=== PATIENT | female | born 1950 | race Caucasian/White ===

== ENCOUNTER 2023-12-15 01:15 | Day surgery (SDC) | payer MEDICARE, SELFPAY ==
[2023-12-01 12:56] VITALS: BMI 25.4
--- NOTE | 2023-12-01 13:39 | PC.NURSE ---
Report to the Outpatient Waiting Room, entrance under the green pavilion located off [facility], at time __0800 on date _12/15/23 . Planned Procedure Time: ___1000 . Time changes happen often and if your time is changed the preop area will call you the afternoon before. - You and your visitor will be asked to self-screen and do not enter if you have any COVID symptoms. - A mask is optional within the hospital at this time. Patients may have clear liquids (water, carbonated beverages, clear teas, apple juice) until 3 hours prior to surgery (0700 AM) with a maximum of 20 ounces. - No food from midnight until time of surgery - Infants may have breast milk until 4 hours before surgery, formula 6 hours prior to surgery. - Children will be allowed to drink immediately following surgery. If applicable, please bring a bottle or sippy cup to assist with drinking. Juice, water, soda, and popsicles are readily available. For infants on formula, please bring formula the day of surgery. Pacifiers are allowed. Take the following medications with a SIP of water the morning of surgery: __AMLODIPINE, CARVEDILOL, GABAPENTIN DO NOT STOP ANY OF YOUR OTHER PRESCRIPTION MEDICATIONS PRIOR TO SURGERY ?EXCEPT THE FOLLOWING Medications to discontinue per physician ____NONE Date to take last dose Please no make-up, nail frisian, hairspray, perfume, deodorant, or body powder the day of surgery. No jewelry (including any body piercings) or valuables the day of surgery, leave them at home. Please take a shower or bath the night before, or the morning of, surgery with an antibacterial soap. Wear comfortable, loose fitting clothing. Children are encouraged to wear pajamas. - Jewelry must be removed prior to entering the operating room. Rings and piercings that are not removed may be cut off. - The hospital will not accept responsibility for valuables. - Please leave all valuables, including medications, at home the day of surgery. If you are going home after surgery, a licensed transfer driver must drive you home. - NO public transportation without another adult if you receive anesthesia. - We recommend that an adult stay with you for 24 hours following discharge. - We also recommend that you do not drive, make important decision, drink alcoholic beverages, or take any drugs that were not prescribed by your health care provider for at least 24 hours after your discharge time. For Pediatric surgeries, we recommend two adults accompany the child home. Follow any additional instructions given to you from your surgeon. If you or anyone in your household have experienced Covid symptoms in the past week, please notify your surgeon or the nurse liaison at the phone number below for possible testing. Telephone instructions given to ____PT and asked if any additional questions and then verbalized understanding. Patient advised to call surgeon office or pre surgery nurse liaison [phone] if any additional questions.
--- NOTE | 2023-12-15 04:49 | PM.IMHP ---
H&P: HPI History of Present Illness Date/Time: 12/15/23 04:49 Chief Complaint: urgency frequency and pelvic pain Narrative: she is history of urgency, frequency, bladder discomfort. Previous records have shown possible Hunner's ulceration. She can not tolerate a office cystoscopy. She presents today for cystoscopy under anesthesia and treatment if abnormality is present Review of Systems Review of Systems: All systems reviewed & are unremarkable except as noted in HPI and below [facility] Social History Social History Smoking status: Never smoker Second hand tobacco smoke exposure: No Alcohol intake: current Drinks per week: 7 Living arrangements: alone Spiritual care concerns: No Meds Home Medications and Allergies Home Medications Medication Instructions Recorded Confirmed Type amlodipine 10 mg tablet 10 mg DAILY 12/01/23 12/01/23 History carvedilol 6.25 mg tablet 6.25 mg BID 12/01/23 12/01/23 History famotidine 20 mg tablet 20 mg PO DAILY 12/01/23 12/01/23 History gabapentin 100 mg capsule See Rx Instructions .Route .COMPLEX 12/01/23 12/01/23 History oxybutynin chloride 5 mg 5 mg PO DAILY 12/01/23 12/01/23 History tablet,extended release 24 hr oxycodone-acetaminophen 7.5 mg-325 See Rx Instructions .Route 12/01/23 12/01/23 History mg tablet .COMPLEX PRN Pain pantoprazole 40 mg tablet,delayed 40 mg PO DAILY 12/01/23 12/01/23 History release pravastatin 80 mg tablet 80 mg HS 12/01/23 12/01/23 History Allergies Allergy/AdvReac Type Severity Reaction Status Date / Time codeine AdvReac Rash Verified 12/01/23 12:47 Penicillins AdvReac Rash Verified 12/01/23 12:47 simvastatin AdvReac SWELLING Verified 12/01/23 12:47 TO ANKLES Exam Narrative: no acute distress normal breathing alert oriented x3 Assessment and Plan Assessment and plan (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 She understands risks of bleeding, infection, damage to the urinary tract, she also understands she may have a normal cystoscopy. She declines office cystoscopy stating she can not tolerate the procedure
--- NOTE | 2023-12-15 04:50 | WPDHPUPDATE1 ---
History and Physical Update Update Date/Time: 12/15/23 04:50 History and Physical has been reviewed, including an updated exam of the patient. There are NO changes in the patient's condition. Risks, benefits, and alternatives have been discussed and questions answered. Patient agrees to proceed with procedure.
[2023-12-15] MEDS: LIDOCAINE HCL 2% GEL UROJET 10 ML PKG MUCOUS MEM (08:28)
[2023-12-15 08:37] VITALS: BP 117/52; PULSE 64; RESP 18; TEMP 36.3; O2SAT 98
--- NOTE | 2023-12-15 08:57 | P.PNAN_ITS ---
Anes - Initial Pre Proc Eval Procedure: Operation Date: 12/15/23 10:00 Proposed Procedures p Cystoscopy, Bladder Biopsy with Steroid Injection - Ash Rodriguez MD Date/Time: 12/15/23 08:57 Surgeon: Ash Rodriguez MD Pre Op Diagnosis: hunner's ulcer Patient Data Age: 73 Gender: F Height: 1.52 m Weight: 59.09 kg Allergies Allergy/AdvReac Type Severity Reaction Status Date / Time codeine AdvReac Rash Verified 12/01/23 12:47 Penicillins AdvReac Rash Verified 12/01/23 12:47 simvastatin AdvReac SWELLING Verified 12/01/23 12:47 TO ANKLES Home Medications Medication Instructions Recorded Confirmed Type amlodipine 10 mg tablet 10 mg DAILY 12/01/23 12/01/23 History carvedilol 6.25 mg tablet 6.25 mg BID 12/01/23 12/01/23 History famotidine 20 mg tablet 20 mg PO DAILY 12/01/23 12/01/23 History gabapentin 100 mg capsule See Rx Instructions .Route .COMPLEX 12/01/23 12/01/23 History oxybutynin chloride 5 mg 5 mg PO DAILY 12/01/23 12/01/23 History tablet,extended release 24 hr oxycodone-acetaminophen 7.5 mg-325 See Rx Instructions .Route 12/01/23 12/01/23 History mg tablet .COMPLEX PRN Pain pantoprazole 40 mg tablet,delayed 40 mg PO DAILY 12/01/23 12/01/23 History release pravastatin 80 mg tablet 80 mg HS 12/01/23 12/01/23 History Patient hx anesthesia problems: none Family hx anesthesia problems: none Results Review: All pre-operative results and documents have been reviewed as part of the pre- operative evaluation. [facility] Social History Social History Smoking status: Never smoker Second hand tobacco smoke exposure: No Alcohol intake: current Drinks per week: 7 Living arrangements: alone Spiritual care concerns: No Anes - Eval Final PreProcedure Day of Procedure 12/15/23 08:57 Patient weight: normal Heart: regular rate and rhythm Lungs: clear to auscultation Airway: Mallampati scale class II Neurological: alert and oriented Last oral intake: >/= 8 hours ASA classification: III Emergent: no Anesthetic plan: proceed Anesthesia type and monitoring: general GIVS and standard monitoring Results Review: All pre-operative results and documents have been reviewed as part of the pre- operative evaluation. Informed Consent: The patient's anesthetic plan and its attendant risks and benefits were discussed with the patient/family/POA. Questions were solicited and answers provided to the satisfaction of the patient/family/POA.
[2023-12-15] MEDS: LACTATED RINGERS 1,000 ML 30 ML IV CONT (09:23)
[2023-12-15] MEDS: ceFAZolin 2 GM/D5W 50 ML 2 GM/50 ML BAG IVPB (09:34)
[2023-12-15] MEDS: TRIAMCINOLONE ACET INJ 40 MG/ML VIAL 200 MG IM (09:48)
--- NOTE | 2023-12-15 09:54 | W.PM.PROC2 ---
Procedure Note - Detailed Date of Procedure 12/15/23 Pre-op Diagnosis hunner's ulcer Post-op Diagnosis Same Procedure Performed Cystoscopy, bladder biopsy, steroid injection Surgeon Ash Rodriguez MD Anesthesia MAC Findings 4 areas of Hunner's ulceration within the bladder Description of Procedure She was correctly identified. Informed consent obtained. She from the operating room. She was given MAC anesthesia. She was placed in dorsal thigh position. She was prepped draped sterile fashion. Time-out performed. Cystoscopy revealed a inflamed bladder. She had 4 discrete areas of Hunner's ulceration. There away from the ureteral orifice. She also had moderate trabeculation on the floor of the bladder. There was no tumors. Ureteral orifices were normal. I biopsy 1 of these areas on the left lateral wall. I sent pathologic analysis. I then generously fulgurated all lesions. Once this was completed I injected Kenalog. 200 mg total at a dosage of 40 mg per mill. A total of 5 cc. I again fulgurated any bleeding sites. There was no bleeding under low insufflation pressures. All fulguration was done away from ureteral orifices. Her bladder was drained. She was awakened transferred to PACU in stable condition. Implants None Estimated Blood Loss 1 Pathology Yes (Bladder biopsy) Complications No immediate complications Condition Stable Disposition PACU
[2023-12-15 09:57] VITALS: BP 98/53; PULSE 66; RESP 14; O2SAT 94
[2023-12-15] MEDS: fentaNYL CITRATE INJ (*CRX) 100 MCG/2 ML VIAL 25 MCG IV PUSH ×4 (10:07→10:21)
[2023-12-15 10:20] VITALS: BP 116/67; PULSE 60; RESP 18; O2SAT 94
[2023-12-15 10:50] VITALS: BP 132/62; PULSE 80; RESP 18
[2023-12-15] MEDS: oxyCODONE HCL (*CRX) 5 MG TAB IR PO (11:05)
[2023-12-15] MEDS: PHENAZOPYRIDINE HCL 100 MG TABLET 200 MG PO (11:05)
[2023-12-15 11:10] VITALS: BP 136/58; PULSE 64; RESP 16
[2023-12-15 11:25] VITALS: BP 132/60; PULSE 64; RESP 16
== END 2023-12-15 11:43 | disposition home or self-care (01) ==
PROVIDERS: Visit Provider Urology
PROC: 0TBB8ZX Excision of Bladder, Via Natural or Artificial Opening Endoscopic, Diagnostic (ICD-10-PCS; CPT 52204; principal; 2023-12-15 10:00)
DX: N30.10 Interstitial cystitis (chronic) without hematuria (principal)
CPT/HCPCS: 52204; 52283; 88305; A9270; J0690; J2704; J3010; J3301; J7120

== ENCOUNTER 2024-03-08 02:48 | Day surgery (SDC) | payer MEDICARE, SELFPAY ==
--- NOTE | 2024-03-03 15:05 | PM.IMHP ---
H&P: HPI History of Present Illness Date/Time: 03/03/24 15:05 Chief Complaint: Hunner's ulcerations Narrative: history of Hunner's ulcerations. Has failed multiple interventions. Had a steroid injection approximately 3 months ago. Would like a repeat steroid injection. Review of Systems Review of Systems: All systems reviewed & are unremarkable except as noted in HPI and below [facility] Social History Social History Smoking status: Never smoker Second hand tobacco smoke exposure: No Alcohol intake: current Drinks per week: 7 Living arrangements: alone Spiritual care concerns: No Meds Home Medications and Allergies Home Medications Medication Instructions Recorded Confirmed Type amlodipine 10 mg tablet 10 mg DAILY 12/01/23 12/15/23 History carvedilol 6.25 mg tablet 6.25 mg BID 12/01/23 12/15/23 History famotidine 20 mg tablet 20 mg PO DAILY 12/01/23 12/15/23 History gabapentin 100 mg capsule See Rx Instructions .Route .COMPLEX 12/01/23 12/15/23 History oxybutynin chloride 5 mg 5 mg PO DAILY 12/01/23 12/15/23 History tablet,extended release 24 hr oxycodone-acetaminophen 7.5 mg-325 See Rx Instructions .Route 12/01/23 12/15/23 History mg tablet .COMPLEX PRN Pain pantoprazole 40 mg tablet,delayed 40 mg PO DAILY 12/01/23 12/15/23 History release pravastatin 80 mg tablet 80 mg HS 12/01/23 12/15/23 History phenazopyridine 200 mg tablet 200 mg PO TID PRN pain 6 doses #20 12/15/23 Rx (Pyridium) tabs sulfamethoxazole 800 1 tablet PO Q12H #6 tabs 12/15/23 Rx mg-trimethoprim 160 mg tablet (Bactrim DS) Allergies Allergy/AdvReac Type Severity Reaction Status Date / Time codeine AdvReac Rash Verified 12/15/23 09:00 Penicillins AdvReac Rash Verified 12/15/23 09:00 simvastatin AdvReac SWELLING Verified 12/15/23 09:00 TO ANKLES Exam Narrative: No acute distress normal breathing alert oriented x3 Assessment and Plan Assessment and plan (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 Understands risks of bleeding, infection, injury to surrounding organs, lack of efficacy. She agrees to proceed
[2024-03-05 11:27] VITALS: BMI 25.4
--- NOTE | 2024-03-05 11:45 | PC.NURSE ---
Report to the Outpatient Waiting Room, entrance under the green pavilion located off [facility], at time __9:30AM on date __03/08/24 . Planned Procedure Time: __11:30AM . Time changes happen often and if your time is changed the preop area will call you the afternoon before. - You and your visitor will be asked to self-screen and do not enter if you have any COVID symptoms. - A mask is optional within the hospital at this time. Patients may have clear liquids (water, carbonated beverages, clear teas, apple juice) until 3 hours prior to surgery with a maximum of 20 ounces. - No food from midnight until time of surgery. Take the following medications with a SIP of water the morning of surgery: ____AMLODIPINE, CARVEDILOL, GABAPENTIN, OXYCODONE DO NOT STOP ANY OF YOUR OTHER PRESCRIPTION MEDICATIONS PRIOR TO SURGERY ?EXCEPT THE FOLLOWING Medications to discontinue per physician __HOLD CELEBREX 7 DAYS PRE-OP PER DR MOFFETT (PER PATIENT) Date to take last dose 02/29/24 Please no make-up, nail kenyan, hairspray, perfume, deodorant, or body powder the day of surgery. No jewelry (including any body piercings) or valuables the day of surgery, leave them at home. Please take a shower or bath the night before, or the morning of, surgery with an antibacterial soap. Wear comfortable, loose fitting clothing. Children are encouraged to wear pajamas. - Jewelry must be removed prior to entering the operating room. Rings and piercings that are not removed may be cut off. - The hospital will not accept responsibility for valuables. - Please leave all valuables, including medications, at home the day of surgery. If you are going home after surgery, a licensed special client bus driver must drive you home. - NO public transportation without another adult if you receive anesthesia. - We recommend that an adult stay with you for 24 hours following discharge. - We also recommend that you do not drive, make important decision, drink alcoholic beverages, or take any drugs that were not prescribed by your health care provider for at least 24 hours after your discharge time. For Pediatric surgeries, we recommend two adults accompany the child home. Follow any additional instructions given to you from your surgeon. If you or anyone in your household have experienced Covid symptoms in the past week, please notify your surgeon or the nurse liaison at the phone number below for possible testing. Telephone instructions given to ___PATIENT and asked if any additional questions and then verbalized understanding. Patient advised to call surgeon office or pre surgery nurse liaison [phone] if any additional questions.
--- NOTE | 2024-03-08 04:45 | WPDHPUPDATE1 ---
History and Physical Update Update Date/Time: 03/08/24 04:45 History and Physical has been reviewed, including an updated exam of the patient. There are NO changes in the patient's condition. Risks, benefits, and alternatives have been discussed and questions answered. Patient agrees to proceed with procedure.
[2024-03-08 09:20] VITALS: BP 139/78; PULSE 69; RESP 14; TEMP 36.6; O2SAT 100
--- NOTE | 2024-03-08 09:51 | WPDANESEPPF ---
Anes - Initial Pre Proc Eval Procedure: Operation Date: 03/08/24 11:30 Proposed Procedures p Cystoscopy, Bladder Biopsy with Steroid Injection - Ash Rodriguez MD Date/Time: 03/08/24 09:51 Surgeon: Ash Rodriguez MD Pre Op Diagnosis: hunners ulcer Patient Data Age: 73 Gender: F Height: 1.52 m Weight: 59 kg Allergies Allergy/AdvReac Type Severity Reaction Status Date / Time codeine Allergy Rash Verified 03/05/24 11:19 Penicillins Allergy Rash Verified 03/05/24 11:19 simvastatin AdvReac SWELLING Verified 03/05/24 11:19 TO ANKLES Home Medications Medication Instructions Recorded Confirmed Type amlodipine 10 mg tablet 10 mg PO QAM 12/01/23 03/05/24 History carvedilol 6.25 mg tablet 6.25 mg PO BID 12/01/23 03/05/24 History gabapentin 100 mg capsule See Rx Instructions .Route .COMPLEX 12/01/23 03/05/24 History oxybutynin chloride 5 mg 5 mg PO DAILY 12/01/23 03/05/24 History tablet,extended release 24 hr oxycodone-acetaminophen 7.5 mg-325 See Rx Instructions .Route 12/01/23 03/05/24 History mg tablet .COMPLEX PRN Pain pantoprazole 40 mg tablet,delayed 40 mg PO DAILY 12/01/23 03/05/24 History release pravastatin 80 mg tablet 80 mg PO HS 12/01/23 03/05/24 History phenazopyridine 200 mg tablet 200 mg PO TID PRN pain 6 doses #20 12/15/23 03/05/24 Rx (Pyridium) tabs celecoxib 100 mg capsule 100 mg PO BID 03/05/24 03/05/24 History gabapentin 300 mg capsule 300 mg PO HS 03/05/24 03/05/24 History nortriptyline 10 mg capsule 10 mg PO HS 03/05/24 03/05/24 History Patient hx anesthesia problems: none Family hx anesthesia problems: none Results Review: All pre-operative results and documents have been reviewed as part of the pre-operative evaluation. [facility] Past Medical History Medical History (Updated 03/08/24 @ 09:51 by Suhas Valenzuela MD) HTN (hypertension) HARSH (obstructive sleep apnea) Social History Social History Smoking status: Never smoker Second hand tobacco smoke exposure: No Alcohol intake: current Drinks per week: 14 Living arrangements: alone Spiritual care concerns: No Anes - Eval Final PreProcedure Day of Procedure 03/08/24 09:51 Patient weight: overweight Heart: regular rate and rhythm Lungs: clear to auscultation Airway: Mallampati scale class II Neurological: alert and oriented Last oral intake: >/= 8 hours ASA classification: III Emergent: no Anesthetic plan: proceed Anesthesia type and monitoring: general GIVS and standard monitoring Results Review: All pre-operative results and documents have been reviewed as part of the pre-operative evaluation. Informed Consent: The patient's anesthetic plan and its attendant risks and benefits were discussed with the patient/family/POA. Questions were solicited and answers provided to the satisfaction of the patient/family/POA.
[2024-03-08] MEDS: LACTATED RINGERS 1,000 ML 30 ML IV CONT (10:13)
--- NOTE | 2024-03-08 10:20 | SUR.PREOP ---
PT TOLD JAYASHREE JANY THAT SHE HAD A SPRITE AT 0800. DR MONTELONGO AWARE. OK TO PROCEED
[2024-03-08] MEDS: ceFAZolin 2 GM/D5W 50 ML 2 GM/50 ML BAG IVPB (10:22)
[2024-03-08] MEDS: TRIAMCINOLONE ACET INJ 40 MG/ML VIAL 200 MG IM (10:42)
[2024-03-08 10:58] VITALS: BP 111/73; PULSE 83; RESP 83; O2SAT 95
--- NOTE | 2024-03-08 11:13 | P.OP_ITS ---
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 She is here today for repeat treatment. It has been 3 months. She understands risks of bleeding, infection, lack of efficacy, damage to the urinary tract. She agrees to proceed Findings for areas of Hunner's ulceration. Away from the ureteral orifice. Dystrophic calcifications noted Description of Procedure she was correctly identified. Informed consent obtained. By the operating room. She was given monitored anesthesia care. She was placed in dorsal lithotomy position. She was prepped and draped sterile fashion. Time-out performed. On cystoscopy she had mild trabeculations. She had 4 areas of Hunner's ulceration. The right near the posterior wall dome and left lateral wall of her bladder. Some of these had Dystrophic calcifications. I removed these calcifications with a grasper. I then biopsy 1 of these areas and sent it for permanent analysis. I injected Kenalog into all the areas. I injected 200 mg of concentration of 40 milligrams/mL. 5 cc total. I generously fulgurated all areas. There was no bleeding under low insufflation pressures. She was awakened transferred to PACU in stable condition Estimated Blood Loss 1 Pathology Yes ( bladder biopsy) Complications No immediate complications Condition Stable Disposition PACU
[2024-03-08 11:25] VITALS: BP 129/68; PULSE 70; RESP 16
[2024-03-08 11:55] VITALS: BP 141/73; PULSE 61; RESP 16
[2024-03-08 12:20] VITALS: BP 122/78; PULSE 65; RESP 16
== END 2024-03-08 12:30 | disposition home or self-care (01) ==
PROVIDERS: Visit Provider Urology
PROC: 0TBB8ZX Excision of Bladder, Via Natural or Artificial Opening Endoscopic, Diagnostic (ICD-10-PCS; CPT 52204; principal; 2024-03-08 11:30)
DX: N30.10 Interstitial cystitis (chronic) without hematuria (principal); I10 Essential (primary) hypertension; G47.33 Obstructive sleep apnea (adult) (pediatric)
CPT/HCPCS: 52204; 52283; 88305; J0690; J2405; J2704; J3010; J3301; J7120

== ENCOUNTER 2024-10-18 02:05 | Day surgery (SDC) | payer MEDICARE, SELFPAY ==
[2024-10-08 14:17] VITALS: BMI 25.0
--- NOTE | 2024-10-08 14:27 | PC.NURSE ---
Report to the Outpatient Waiting Room, entrance under the green pavilion located off [facility], at time _0830am on date _10/18/24 . Planned Procedure Time: __10:30am .? Time changes happen often and if your time is changed the preop area will call you the afternoon before. - You and your visitor will be asked to self-screen and do not enter if you have any COVID symptoms. Please call surgeon if you need to reschedule. - A mask is optional within the hospital at this time. Patients may have clear liquids (water, carbonated beverages, clear teas, apple juice) until 3 hours prior to surgery with a maximum of 20 ounces. - No food from midnight until time of surgery and no smoking. This includes no chewing gum, candy or mints.(0730am) d. Take only the following medications with a SIP of water on the morning of surgery: _Amlodipine and Metoprolol, and Oxycodone if needed DO NOT STOP ANY OF YOUR OTHER PRESCRIPTION MEDICATIONS PRIOR TO SURGERY EXCEPT THE FOLLOWING Medications to discontinue per physician Hold all vitamins and supplements for 3 days prior per Anesthesia Date to take last dose____10/14/24 Please no make-up, nail greenlandic, hairspray, perfume, deodorant, or body powder the day of surgery.? No jewelry (including any body piercings) or valuables the day of surgery, leave them at home.? Please take a shower or bath the night before, or the morning of, surgery with an antibacterial soap.? Wear comfortable, loose fitting clothing.? - Jewelry must be removed prior to entering the operating room.? Rings and piercings that are not removed may be cut off. - The hospital will not accept responsibility for valuables.? - Please leave all valuables, including medications, at home the day of surgery. If you are going home after surgery, a licensed courtesy van driver must drive you home.? - NO public transportation without another adult if you receive anesthesia. - We recommend that an adult stay with you for 24 hours following discharge. - We also recommend that you do not drive, make important decision, drink alcoholic beverages, or take any drugs that were not prescribed by your health care provider for at least 24 hours after your discharge time. Follow any additional instructions given to you from your surgeon. Telephone instructions given to ___patient and asked if any additional questions and then verbalized understanding. Patient advised to call surgeon office or pre surgery nurse liaison [phone] if any additional questions.
--- NOTE | 2024-10-13 12:14 | P.HP_ITS ---
H&P: HPI History of Present Illness Date/Time: 10/13/24 12:14 Chief Complaint: bladder pain Narrative: hunner ulcer Review of Systems Review of Systems: All systems reviewed & are unremarkable except as noted in HPI and below [facility] Past Medical History Medical History HTN (hypertension) HARSH (obstructive sleep apnea) Social History Social History Smoking status: Never smoker Second hand tobacco smoke exposure: No Alcohol intake: current Drinks per week: 14 Alcohol use details: 2 glasses wine a day Substance use: never Living arrangements: alone Spiritual care concerns: No Meds Home Medications and Allergies Home Medications Medication Instructions Recorded Confirmed Type amlodipine 10 mg tablet 10 mg PO QAM 12/01/23 10/08/24 History oxybutynin chloride 5 mg 5 mg PO DAILY 12/01/23 10/08/24 History tablet,extended release 24 hr oxycodone-acetaminophen 7.5 mg-325 See Rx Instructions .Route 12/01/23 10/08/24 History mg tablet .COMPLEX PRN Pain pantoprazole 40 mg tablet,delayed 40 mg PO DAILY 12/01/23 10/08/24 History release pravastatin 80 mg tablet 80 mg PO HS 12/01/23 10/08/24 History nortriptyline 10 mg capsule 10 mg PO HS 03/05/24 10/08/24 History metoprolol succinate 50 mg 50 mg PO BID 10/08/24 10/08/24 History tablet,extended release 24 hr Allergies Allergy/AdvReac Type Severity Reaction Status Date / Time codeine Allergy Intermediate Rash Verified 10/08/24 14:12 Penicillins Allergy Intermediate Rash Verified 10/08/24 14:12 simvastatin AdvReac Intermediate SWELLING Verified 10/08/24 14:12 TO ANKLES Exam Narrative: NAD A+Ox3 Assessment and Plan Assessment and plan (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
--- NOTE | 2024-10-18 07:18 | WPDHPUPDATE1 ---
History and Physical Update Update Date/Time: 10/18/24 07:18 History and Physical has been reviewed, including an updated exam of the patient. There are NO changes in the patient's condition. Risks, benefits, and alternatives have been discussed and questions answered. Patient agrees to proceed with procedure.
--- NOTE | 2024-10-18 09:50 | P.PNAN_ITS ---
Anes - Initial Pre Proc Eval Procedure: Operation Date: 10/18/24 11:15 Proposed Procedures p Cystoscopy, Bladder Biopsy, Steroid Injection - Ash Rodriguez MD Date/Time: 10/18/24 09:50 Surgeon: Ash Rodriguez MD Pre Op Diagnosis: hunners ulcer Patient Data Age: 73 Gender: F Height: 1.52 m Weight: 58 kg Allergies Allergy/AdvReac Type Severity Reaction Status Date / Time codeine Allergy Intermediate Rash Verified 10/08/24 14:12 Penicillins Allergy Intermediate Rash Verified 10/08/24 14:12 simvastatin AdvReac Intermediate SWELLING Verified 10/08/24 14:12 TO ANKLES Home Medications ?Medication ?Instructions ?Recorded ?Confirmed ?Type amlodipine 10 mg tablet 10 mg PO QAM 12/01/23 10/08/24 History oxybutynin chloride 5 mg 5 mg PO DAILY 12/01/23 10/08/24 History tablet,extended release 24 hr oxycodone-acetaminophen 7.5 mg-325 See Rx Instructions .Route 12/01/23 10/08/24 History mg tablet .COMPLEX PRN Pain pantoprazole 40 mg tablet,delayed 40 mg PO DAILY 12/01/23 10/08/24 History release pravastatin 80 mg tablet 80 mg PO HS 12/01/23 10/08/24 History nortriptyline 10 mg capsule 10 mg PO HS 03/05/24 10/08/24 History metoprolol succinate 50 mg 50 mg PO BID 10/08/24 10/08/24 History tablet,extended release 24 hr Patient hx anesthesia problems: none Family hx anesthesia problems: none Results Review: All pre-operative results and documents have been reviewed as part of the pre- operative evaluation. [facility] Past Medical History Medical History HARSH (obstructive sleep apnea) HTN (hypertension) Social History Social History Smoking status: Never smoker Second hand tobacco smoke exposure: No Alcohol intake: current Drinks per week: 14 Alcohol use details: 2 glasses wine a day Substance use: never Living arrangements: alone Spiritual care concerns: No Anes - Eval Final PreProcedure Day of Procedure 10/18/24 09:50 Patient weight: normal Heart: regular rate and rhythm Lungs: clear to auscultation Airway: Mallampati scale class II Neurological: alert and oriented Last oral intake: >/= 8 hours ASA classification: III Emergent: no Anesthetic plan: proceed Anesthesia type and monitoring: general GIVS and standard monitoring Results Review: All pre-operative results and documents have been reviewed as part of the pre- operative evaluation. Informed Consent: The patient's anesthetic plan and its attendant risks and benefits were discussed with the patient/family/POA. Questions were solicited and answers provided to the satisfaction of the patient/family/POA.
[2024-10-18 10:17] VITALS: BP 132/64; PULSE 72; TEMP 36.2; O2SAT 98; BMI 24.8
[2024-10-18] MEDS: LACTATED RINGERS 1,000 ML 30 ML IV CONT (10:21)
[2024-10-18] MEDS: ceFAZolin 2 GM/D5W 50 ML 2 GM/50 ML BAG IVPB (10:44)
[2024-10-18] MEDS: LIDOCAINE 2% GEL UROJET 10 ML PKG MUCOUS MEM (10:56)
[2024-10-18] MEDS: TRIAMCINOLONE ACET INJ 40 MG/ML VIAL 200 MG IM (10:57)
--- NOTE | 2024-10-18 11:12 | P.OP_ITS ---
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 Dystrophic calcifications present. All Hunner's ulcers treated and fulgurated Description of Procedure She was correctly identified. Informed consent obtained. She from the operating room. She was given monitored anesthesia care. She was placed in the dorsal lithotomy position. She was prepped and draped in a sterile fashion. A time-out performed. She was given appropriate perioperative antibiotics Cystoscopy reveals a small capacity bladder. There was multiple areas of Hunner's ulceration. Four in total. Many of these had dystrophic calcifications stuck to them. These dystrophic calcifications were removed. I then biopsy 1 of the lesions and sent it for pathologic analysis. I then injected Kenalog. I injected 5 cc of Kenalog at a concentration of 40 milligrams/mL. I did this into all the ulcerated areas. I then generously fulgurated all lesions. I made sure all fulguration was done away from the ureteral orifice. Stony material was irrigated out. I examined the bladder under low insufflation pressures there was no bleeding. Her bladder was drained. She was awakened transferred to PACU in stable condition. Estimated Blood Loss 1 Drains No Packing No Pathology Yes (Bladder biopsy) Complications No immediate complications Condition Stable Disposition PACU
[2024-10-18 11:15] VITALS: BP 125/64; PULSE 88; RESP 18; O2SAT 100
[2024-10-18] MEDS: fentaNYL CITRATE INJ (*CRX) 100 MCG/2 ML VIAL 25 MCG IV PUSH ×5 (11:25→11:40)
[2024-10-18 11:45] VITALS: BP 113/73; PULSE 80; RESP 16
[2024-10-18 12:15] VITALS: BP 147/81; PULSE 72; RESP 18
[2024-10-18] MEDS: oxyCODONE HCL (*CRX) 5 MG TAB IR PO (12:16)
[2024-10-18 12:45] VITALS: BP 128/59; PULSE 71; RESP 16
== END 2024-10-18 13:02 | disposition home or self-care (01) ==
PROVIDERS: Visit Provider Urology
PROC: 0TBB8ZX Excision of Bladder, Via Natural or Artificial Opening Endoscopic, Diagnostic (ICD-10-PCS; CPT 52204; principal; 2024-10-18 11:15)
DX: N30.10 Interstitial cystitis (chronic) without hematuria (principal); N32.89 Other specified disorders of bladder; I10 Essential (primary) hypertension; G47.33 Obstructive sleep apnea (adult) (pediatric); Z79.891 Long term (current) use of opiate analgesic
CPT/HCPCS: 52204; 52283; 88305; A9270; J0690; J1100; J2003; J2405; J2704; J3010; J3301; J7120